=== PATIENT | female | born 1985 | race Caucasian/White ===

== ENCOUNTER 2020-06-21 06:40 | Observation (INO) ==
--- NOTE | 2020-06-08 12:52 | Anesthesiology Consultation ---
Date of Service June 08, 2020 Assessment & Plan (1) Encounter for pre-operative examination: - Check test AM DOS - Per assessment on 06/08: Travel screen negative. No known COVID-19 positive contacts or current COVID-19 related symptoms. Surgeon arranging preop COVID testing (scheduled 06/15; [place]). Awaiting results. - Palpitations: chronic x 3-4 months, EKG done 06/02/20 unremarkable, 2 week holter monitor to be completed 06/18/20 (PCP ordered). Per PCP note from 06/02/20, "She states she is having episodes at least twice a week. She does feel presyncopal symptoms including dizziness, blurry vision and circumoral numbness. Denies any chest pain. She has no headaches." 2 week holter report will likely not be resulted in time for DOS 06/21. Case reviewed with Dr. Medina. He recommends surgery be rescheduled to after holter monitor resulted. Spoke with patient- she states she will contact PCP to see if they are able to remove Holter to review available data prior to surgery if okay with PCP (she has already had recorded, symptomatic episodes). - Patient acceptable risk for surgery pending Holter report. Chart Review Chart Review: Patient NOT seen in Pre Admission Testing History Surgery Operation Date: 06/21/20 12:50 Proposed Procedures p Total Knee Arthroplasty - Dexter Manzo DO Height/Weight Height: 5 ft 7 in Weight: 61.235 kg Allergies Allergy/AdvReac Type Severity Reaction Status Date / Time NSAIDS (Non-Steroidal AdvReac Unknown Gastrointestinal Verified 06/08/20 11:59 Anti-Inflamma Upset Medications Home Medications Medication Instructions Recorded Confirmed Last Taken acetaminophen [Tylenol Extra 500 - 1,000 mg PO Q6H PRN 05/09/19 06/08/20 06/01/19 21:00 Strength] biotin 1 mg PO QAM 05/09/19 06/08/20 06/01/19 08:00 duloxetine 60 mg PO QAM 05/09/19 06/08/20 06/02/19 04:00 gabapentin 300 mg PO HS 05/09/19 06/08/20 05/31/19 hydroxychloroquine [Plaquenil] 400 mg PO QAM 05/09/19 06/08/20 06/02/19 04:00 multivitamin 1 tab PO QAM 05/09/19 06/08/20 06/01/19 08:00 pantoprazole 40 mg tablet,delayed 40 mg PO DAILY PRN 01/19/20 06/08/20 Unknown release tramadol 50 mg tablet 50 mg PO Q8H PRN 01/19/20 06/08/20 Unknown tretinoin 0.025 % topical cream 1 applic TOPICAL ONCE #45 g 04/08/20 06/08/20 Unknown cyclobenzaprine 5 mg tablet 5 mg PO TID PRN #30 tab 05/26/20 06/08/20 Unknown Past Medical History Medical History (Updated 06/08/20 @ 12:47 by April Pascual) Anxiety Arthritis Fibromyalgia GERD (gastroesophageal reflux disease) Heart palpitations Hiatal hernia History of anemia iron deficiency- follows with hematology (Dr. Griffiths) Lyme disease dx 2017, chronic, follows with Dr. Mcclellan ([place], [place])/Lyme specialist Migraine Osteoarthritis Rheumatoid arthritis Temporomandibular joint disorder R/L, wears mouth guard HS Past Family History Family History Mother Anxiety Depression Hypertension Sister Anxiety Depression Father Prostate cancer Grandmother (Maternal) Breast cancer Grandmother (Paternal) Breast cancer Heart disease Aunt Breast cancer Uncle Colon cancer Colorectal cancer Grandfather (Maternal) Heart disease Myocardial infarction Denies family history of Ovarian cancer Past Surgical History Surgical History (Updated 06/08/20 @ 12:09 by Marlin Goldsmith, RN) H/O arthroscopy of right knee X3 History of colonoscopy History of esophagogastroduodenoscopy (EGD) History of hysteroscopy WITH POLYPECTOMY History of removal of ovarian cyst History of repair of anterior cruciate ligament of left knee History of repair of anterior cruciate ligament of right knee History of rhinoplasty Hx laparoscopic cholecystectomy (06/02/19) Laparoscopic cholecystectomy 06/02/19 Dr. Zungia Nausea and vomiting after administration of anesthetic agent Social History Smoking Status: Former smoker Do You Dip or Chew Tobacco: No Smoking End Date: SMOKED X 1 YR-QUIT AGE 20 Hx Alcohol Use: Yes Alcohol type: beer and wine alcohol intake frequency: a few times a month Hx Substance Use: No Testing Laboratory Results 06/02/20 WBC 5.92 H/H 12.9/37.2 PLATELETS 324 SODIUM 138 POTASSIUM 3.9 CHLORIDE 104 CO2 32 BUN 11 CREATININE 0.76 GLUCOSE 88 PT 10.7 PTT 26.2 INR 1.0 TSH 0.975 T&S A+Ab- Electrocardiogram Date: 06/02/20 SR at 80bpm.
--- NOTE | 2020-06-16 20:28 | History & Physical Report ---
Date of Service June 16, 2020 Assessment & Plan (1) Osteoarthritis of right knee: We will proceed with a right total knee arthroplasty. Postoperatively she will be started on aspirin for DVT prophylaxis and kept overnight in the hospital for postoperative medical management. She plans to use [facility] in [place] upon discharge. Present on Admission?: Yes History of Present Illness Chief Complaint: Primary osteoarthritis of the right knee Primary Care Provider: Carley Lizarraga MD Lois is a pleasant 35-year-old female who has had 4 procedures to her right knee in the past. She initially had an ACL reconstruction and then had 3 additional arthroscopies for cleanout procedures of her right knee. Her last 1 was in 2014. She has developed marked arthritis of her right knee. It is really limiting her daily activities. She has been treated conservatively for the past 5 years with cortisone injections. Unfortunately she is still having a lot of knee pain. She cannot do things she enjoys. She not go hiking or go for long walks. Her pain is always there. After long discussions regarding her age, we have elected to proceed with a right total knee arthroplasty. Allergies Allergy/AdvReac Type Severity Reaction Status Date / Time NSAIDS (Non-Steroidal AdvReac Unknown Gastrointestinal Verified 06/08/20 11:59 Anti-Inflamma Upset Home Medications Home Medications Medication Instructions Recorded Confirmed Type acetaminophen [Tylenol Extra 500 - 1,000 mg PO Q6H PRN 05/09/19 06/08/20 History Strength] biotin 1 mg PO QAM 05/09/19 06/08/20 History duloxetine 60 mg PO QAM 05/09/19 06/08/20 History gabapentin 300 mg PO HS 05/09/19 06/08/20 History hydroxychloroquine [Plaquenil] 400 mg PO QAM 05/09/19 06/08/20 History multivitamin 1 tab PO QAM 05/09/19 06/08/20 History pantoprazole 40 mg tablet,delayed 40 mg PO DAILY PRN 01/19/20 06/08/20 History release tramadol 50 mg tablet 50 mg PO Q8H PRN 01/19/20 06/08/20 History tretinoin 0.025 % topical cream 1 applic TOPICAL ONCE #45 g 04/08/20 06/08/20 Rx cyclobenzaprine 5 mg tablet 5 mg PO TID PRN #30 tab 05/26/20 06/08/20 Rx Past Med/Surg History Medical History Anxiety Arthritis Fibromyalgia GERD (gastroesophageal reflux disease) Heart palpitations Hiatal hernia History of anemia iron deficiency- follows with hematology (Dr. Griffiths) Lyme disease dx 2017, chronic, follows with Dr. Mcclellan ([place], [place])/Lyme specialist Migraine Osteoarthritis Rheumatoid arthritis Temporomandibular joint disorder R/L, wears mouth guard HS Surgical History H/O arthroscopy of right knee X3 History of colonoscopy History of esophagogastroduodenoscopy (EGD) History of hysteroscopy WITH POLYPECTOMY History of removal of ovarian cyst History of repair of anterior cruciate ligament of left knee History of repair of anterior cruciate ligament of right knee History of rhinoplasty Hx laparoscopic cholecystectomy (06/02/19) Laparoscopic cholecystectomy 06/02/19 Dr. Zuniga Nausea and vomiting after administration of anesthetic agent Family History Mother Anxiety Depression Hypertension Sister Anxiety Depression Father Prostate cancer Grandmother (Maternal) Breast cancer Grandmother (Paternal) Breast cancer Heart disease Aunt Breast cancer Uncle Colon cancer Colorectal cancer Grandfather (Maternal) Heart disease Myocardial infarction Denies family history of Ovarian cancer Social History Smoking Status: Former smoker Second Hand Exposure: Yes (PARENTS SMOKED); Hx Alcohol Use: Yes Alcohol type: beer and wine Hx Substance Use: No Preferred Language: Swazi Communication Ability: Effective Visual Impairment: No Limitations Hearing Ability: Normal Draftsperson Required: No Beliefs That Will Affect Care: None marital status: Current Living Situation: Spouse and Family Current Living Situation Comment: FAMILY WILL HELP POST OP current occupational status: employed current occupation: RN at [employer], [employer] Feels Safe at Home: Yes Childhood Exposure to Second-Hand Smoke: Yes Dental Care, Regularly: Yes Physical Activity Frequency: Daily Seatbelt Use: always Sunscreen Use: Yes Do you think of yourself as: straight/heterosexual Assistive Devices: Glasses Review of Systems Review of Systems: All systems reviewed & are unremarkable except as noted in HPI & below Physical Exam Constitutional: WD/WN, vitals as above Eyes: PERRL, conjunctivae normal, anicteric sclerae ENMT: external ear and nose normal, oropharynx normal Neck: trachea midline, no thyromegaly Respiratory: normal respiratory effort Cardiovascular: RRR, no murmur, no edema Gastrointestinal (Abdomen): normal bowel sounds, soft, nontender, no hepatosplenomegaly Musculoskeletal: On physical examination of the right knee there is a trace effusion. There is near full range of motion and no evidence of instability. There is significant tenderness palpation along the medial and lateral joint lines and over the distal femoral condyles. Psychiatric: A+Ox3, euthymic affect Results & Data Results & Data ([facility]) Diagnostic Findings Radiographs of the right knee demonstrate advanced osteoarthritis with joint space narrowing osteophyte formation and [id number] articulation. PG Care Time/CCT Total # of Minutes Spent Total Time Spent with Patient: Total time spent is greater than 50% in coordination of care (as documented) at patient's floor/unit and/or counseling patient: Coding Level of Care Code None Diagnoses Osteoarthritis of right knee M17.11
[~2020-06-21 06:40] MED LIST: ACETAMINOPHEN 500 MG TAB PO SCH; FAMOTIDINE 20 MG TAB PO SCH; GABAPENTIN 900 MG DOSE PO SCH; LR 500ML BOLUS, THEN 15ML/HR IV SCH; LR 60ML/HR IV SCH; ROPIVACAINE 0.5% HCL/PF 150 MG, BUPIVACAINE 0.5% MPF 30 ML, EPINEPHrine 30MG/30ML (OR U... INSTIL SCH; TRANEXAMIC ACID 1,000 MG **IV Intra-op IV SCH; TRANEXAMIC ACID 1,000 MG **IV Pre-op IV SCH; ceFAZolin 1000MG 1,000 MG/7.5 ML SYR IV SCH; dexAMETHasone 4 MG TAB PO SCH
[2020-06-21] MEDS ORDERED: BUPIVACAINE 0.5 % 5 MG/1 ML PF 10ML VIAL ONE (06:45)
[2020-06-21] MEDS ORDERED: EPINEPHrine INJ 1 MG/ML AMP ONE (06:46)
[2020-06-21] MEDS ORDERED: BUPIVACAINE 0.25% 30 ML VIAL ONE (06:46)
[2020-06-21] MEDS ORDERED: DEXAMETHASONE SOD INJ 4 MG/ML VIAL ONE (06:46)
[2020-06-21] MEDS ORDERED: MIDAZOLAM HCL 1 MG/ML 2ML VIAL ONE ×3 (07:45→09:57)
[2020-06-21] MEDS ORDERED: PROPOFOL IV EMULSION 10 MG/ML 20 ML VIAL IV ONE (07:45)
[2020-06-21] MEDS ORDERED: LIDOCAINE HCL 2% 2 ML VIAL/AMP(20MG/ML) INFIL ONE (07:45)
[2020-06-21] MEDS ORDERED: fentaNYL citrate 100 MCG/2 ML VIAL ONE (07:45)
--- NOTE | 2020-06-21 08:43 | History & Physical Bridge Note ---
Date of Service June 21, 2020 History & Physical Bridge Note I have examined the patient, reviewed the History & Physical and in the interval since the performance of the History & Physical I have noted the following changes of clinical significance: no changes noted
[2020-06-21] MEDS ORDERED: fentaNYL citrate 100 MCG/2 ML VIAL IV PRN (08:48)
[2020-06-21] MEDS ORDERED: ATROPINE SULFATE 0.1 MG/ML 10ML SYR IV PRN (08:48)
[2020-06-21] MEDS ORDERED: ePHEDrine sulfate 50 MG/ML AMP IV PRN (08:48)
[2020-06-21] MEDS ORDERED: ONDANSETRON INJ 2 MG/ML 2 ML VIAL IV PRN ×2 (08:48→12:25)
[2020-06-21] MEDS ORDERED: PROMETHAZINE HCL 6.25 MG in SODIUM CHLORIDE 0.9% 50 ML IV PRN (08:48)
[2020-06-21] MEDS ORDERED: ORTHO JOINT ANESTHETIC ONE (09:08)
[2020-06-21] MEDS ORDERED: ONDANSETRON INJ 2 MG/ML 2 ML VIAL ONE (09:36)
--- NOTE | 2020-06-21 11:09 | Operative Report ---
PG Post Operative Report Pre & Post Diagnosis Operation Date: 06/21/20 09:05 Pre-Op Diagnosis: Degenerative Joint Disease, Right Knee Post-Op Diagnosis: Degenerative Joint Disease, Right Knee I identified the patient and participated in the time-out.: Yes Procedure Operation Date: 06/21/20 09:05 Actual Procedures p Right Total Knee Arthroplasty(Right) - Dexter Manzo DO Surgeon Dexter Manzo DO Boxing Promoter Dexter Abernathy PAC Estimated Blood Loss 10 Findings Consistent with Post-Op Diagnosis Specimens Right femoral and tibial bone Complications none Disposition Disposition: Recovery Room Indications Lois is a pleasant 35-year-old female who is been dealing with chronic right knee pain. She had an ACL reconstruction done in the past. She has since had 5 knee arthroscopies to her right knee. Unfortunately she continues to have pain. She has severe arthritis in the patellofemoral region and complete delamination of the cartilage medially. After extensive discussions regarding her age, we elected to proceed with a right total knee arthroplasty. Description of Procedure Implants used: I used a Wilfrido Persona total knee arthroplasty system with a size 6 standard femur, D tibia, 32 patella, and a size 11 medial congruent polyethylene bearing. All components were cemented in place with Palacos G cement. Lois arrived [facility] for the above procedure. She was seen in the preoperative holding area and the operative extremity was identified and signed. She was given a preoperative antibiotic, TXA, a spinal anesthetic and an adductor nerve block. She was taken back to the operating room and laid on the table in supine position. She was given basic sedation. The operative knee was then prepped and draped in sterile fashion. A timeout was done, and the patient and the operative extremity was properly identified. A midline incision was made directly over the patella. Dissection was taken down to the extensor mechanism. A subvastus arthrotomy was used. The medial retinaculum was released and the fat pad was mostly excised. The knee was flexed and the ACL, PCL, and meniscus were removed. A drill was sent down the center of the femoral canal followed by an intramedullary roberto. Off that roberto a distal femoral cutting block was placed. 9 mm was resected off the distal femur at 5 of valgus. A posterior referencing AP sizing guide was then placed on the distal femur. The femur measured to be a size 6 standard. 2 drill holes were placed in 3 of external rotation. A 4-in-1 cutting block was then impacted into place. Anterior, posterior, and chamfer cuts were then made. The proximal tibia was then exposed. An external tibial alignment guide was placed. A tibial cut guide was then anchored in place and the proximal tibia was then resected. The posterior aspect of the knee was then opened up and any additional meniscus fragments and osteophytes were removed. The tibia measured to be a size D. The tibial plate was then placed in the appropriate rotation and the tibia was drilled and punched. Trial components were then placed. I used a size 11 medial congruent polyethylene insert. The knee was brought through a full range of motion and felt to be stable. The peg holes for the femoral component were then drilled. The patella was then everted and 9 mm was resected off the posterior aspect of the patella. The patella measured to be a size 32. 3 peg holes were then drilled. A trial patella was placed. The knee was once again brought through a full range of motion and felt to be stable. Trial components were then removed. The surrounding soft tissues were injected with 100 cc of an orthopedic pain control cocktail. All components were then cemented into place with Palacos G cement. The final polyethylene insert was then snapped into place. Once cement was dry the tourniquet was deflated. Hemostasis was obtained. A dilute betadyne lavage was then done for 3 minutes. The joint was then irrigated with normal saline solution. The subvastus arthrotomy was then closed with #1 Vicryl suture. The skin was closed with 2-0 Vicryl, 3-0V lock suture, and robert. A Silverlon and a soft compressive dressing were placed. She was then transferred to a hospital bed and taken to the postanesthesia care unit in stable condition. She tolerated the procedure well. Dexter Abernathy PA-C, was present for the entire procedure. He was critical for patient positioning, prepping, draping, retraction exposure, wound closure and application of sterile dressing. I attest to the content of the Intraoperative Record and any orders documented therein. Any exceptions are noted below.
--- NOTE | 2020-06-21 12:07 | XRay Report ---
RIGHT KNEE 2 VIEWS History: Right total knee arthroplasty. Degenerative arthritis. Postop. FINDINGS: The patient is status post a right total knee arthroplasty. The hardware is intact. No frac ture or dislocation. Skin robert are in place. IMPRESSION: Right total knee arthroplasty. No evidence for hardware complication. ACT 112: Negative or not required by law. Electronically signed by: Ranulfo Hughes M.D. 06/21/2020 12:06 PM
[2020-06-21] MEDS ORDERED: bisacodyL 10 MG SUPP PR PRN (12:25)
[2020-06-21] MEDS ORDERED: MAGNESIUM HYDROXIDE SUSP 30 ML UDC PO PRN (12:25)
[2020-06-21] MEDS ORDERED: METOCLOPRAMIDE HCL INJ 5 MG/ML 2 ML VIAL IV PRN (12:25)
[2020-06-21] MEDS ORDERED: NALOXONE HCL 0.4 MG/1 ML VIAL/CARP IV PRN (12:25)
[2020-06-21] MEDS ORDERED: PANTOprazole 40 MG TAB PO PRN (12:25)
[2020-06-21] MEDS ORDERED: oxyCODONE HCL IR 5 MG TAB (IMMEDIATE RELEASE) PO PRN (12:25)
[2020-06-21] MEDS ORDERED: SODIUM CHLORIDE 0.9% 1000ML 1,000 ML IV SCH (12:25)
--- NOTE | 2020-06-21 12:50 | Anesthesiology Progress Note ---
Date of Service June 21, 2020 Anesthesia Post Procedure Vital Signs Vital Signs: Temp Pulse Resp BP BP Pulse Ox 06/21/20 12:45 77 16 108/66 99 06/21/20 12:15 36.8 C 85 16 99/65 L 99 06/21/20 12:05 37.2 C 79 14 98/64 L 98 06/21/20 11:55 37.2 C 81 19 102/64 100 06/21/20 11:45 37.2 C 81 14 99/65 L 100 06/21/20 11:35 79 14 97/66 L 100 06/21/20 11:25 80 15 105/65 100 06/21/20 11:19 36.7 C 82 12 107/66 100 06/21/20 08:24 65 18 104/62 100 06/21/20 07:46 36.8 C 69 18 119/72 96 Transfer of Care Handoff Completed per policy Notes Mental Status: alert / awake / arousable Patient Amnestic to Procedure: Yes Nausea / Vomiting: adequately controlled Pain: adequately controlled Airway Patency, RR, SpO2: stable & adequate BP & HR: stable & adequate Hydration State: stable & adequate Neuraxial Anesthesia: was administered and sensory block is resolving Anesthetic Complications: no major complications apparent
[2020-06-21] MEDS: ACETAMINOPHEN 500 MG TAB PO SCH ×2 (14:16→21:38)
[2020-06-21] MEDS: ceFAZolin 2000MG 2,000 MG/15 ML SYR IV SCH ×2 (16:22→23:13)
[2020-06-21] MEDS: HYDROmorphone INJ 0.5 MG/0.5 ML SYR IV PRN ×2 (19:19→23:13)
[2020-06-21] MEDS ORDERED: GABAPENTIN 300 MG CAP PO SCH (21:00)
[2020-06-21] MEDS ORDERED: NON-FORMULARY PATIENT'S OWN MED EXT SCH (21:00)
[2020-06-21] MEDS ORDERED: SENNA 8.6 MG TAB PO SCH (21:00)
[2020-06-21] MEDS: oxyCODONE HCL IR 5 MG TAB (IMMEDIATE RELEASE) PO PRN (21:38)
[2020-06-21] MEDS: ASPIRIN 81 MG ECTAB PO SCH (21:40)
[2020-06-21] MEDS: DOCUSATE SODIUM 100 MG CAP PO SCH (21:41)
[2020-06-22] MEDS: oxyCODONE HCL IR 5 MG TAB (IMMEDIATE RELEASE) PO PRN ×4 (01:24→13:13)
[2020-06-22] MEDS: CYCLOBENZAPRINE HCL 5 MG TAB PO PRN ×2 (02:45→10:33)
[2020-06-22] MEDS: ACETAMINOPHEN 500 MG TAB PO SCH (04:59)
[2020-06-22] MEDS: HYDROmorphone INJ 0.5 MG/0.5 ML SYR IV PRN ×2 (06:36→10:32)
[2020-06-22 07:29] LABS: Hemoglobin 11.2 g/dL (12.0-16.0); Mean Corpuscular Hemoglobin 32.8 pg (25-34); Mean Corpuscular Hgb Conc 33.9 g/dL (32-36); Mean Corpuscular Volume 96.8 fL (80-100); Mean Platelet Volume 10.1 fL (7.4-10.4); Platelet Count 249 K/uL (130-400); RDW Coefficient of Variation 12.5 % (11.5-14.5); RDW Standard Deviation 43.8 fL (36.4-46.3); Red Blood Count 3.41 M/uL (4.2-5.4); White Blood Count 10.42 K/uL (4.8-10.8)
[2020-06-22] MEDS ORDERED: dexAMETHasone 4 MG TAB PO SCH (08:00)
--- NOTE | 2020-06-22 08:03 | Orthopedic Progress Note ---
Date of Service June 22, 2020 Assessment & Plan (1) Status post right knee replacement: Lois is recovering as expected up to this point. She understands the numbness in her foot will likely subside as the day progresses. From an orthopedic standpoint, she is ready for discharge once her foot numbness completely resloves. She will await medical clearance. She will continue physical therapy in the meantime for ambulatory assistance and range of motion exercises. She may remain weightbearing as tolerated. She will continue aspirin for DVT prophylaxis. Once discharged, she can follow-up in our orthopedic office in 2 weeks for reevaluation and staple removal at that time. Admission and Anticipated Discharge Date Admission Date: June 21, 2020 Gil Abreu was seen and examined at bedside with Dr. Manzo today. States her pain has been mostly well controlled, however, she did not sleep comfortably through the night. She states the oxycodone did not provide significant relief but she did get relief from the Dilaudid. She has been working with physical therapy for ambulatory assistance and range of motion exercises. She denies any fever, chills, sweats. She has no other complaints today. She is excited for discharge. Review of Systems Constitutional: no fever, no chills and no problem reported Eyes: as per Subjective / HPI; no problem reported Ear, Nose, Mouth, Throat: as per Subjective / HPI; no problem reported Respiratory: as per Subjective / HPI; no problem reported Cardiovascular: no edema and no problem reported Gastrointestinal: no nausea, no vomiting and no problem reported Musculoskeletal: as per Subjective / HPI Integumentary: as per Subjective / HPI; no problem reported Neurologic: no tingling, no paresthesia and no problem reported Psychiatric: no problem reported Endocrine: as per Subjective / HPI Hematologic / Lymphatic: as per Subjective / HPI Allergy / Immunological: no problem reported Physical Exam Musculoskeletal: Lois was laying comfortably in bed, in no acute distress, upon arrival. She is alert and oriented x3. Her dressings appear clean and dry with no evidence of discharge. She is unable to plantarflex/dorsiflex her foot at this time. She is otherwise neurovascularly intact. Results & Data ([facility]) Vital Signs (Past 12 Hours) Vital Signs Temp Pulse Resp BP Pulse Ox 06/22/20 02:39 36.8 C 67 15 101/63 99 11/16/20 23:03 36.8 C 85 15 120/74 100 PG Care Time/CCT Total # of Minutes Spent Total Time Spent with Patient: Total time spent is greater than 50% in coordination of care (as documented) at patient's floor/unit and/or counseling patient: Coding Level of Care Code None Diagnoses Status post right knee replacement Z96.651
--- NOTE | 2020-06-22 08:10 | Discharge Summary ---
Date of Service June 22, 2020 Admission HPI Per Admitting Provider Lois is a pleasant 35-year-old female who has had 4 procedures to her right knee in the past. She initially had an ACL reconstruction and then had 3 additional arthroscopies for cleanout procedures of her right knee. Her last 1 was in 2014. She has developed marked arthritis of her right knee. It is really limiting her daily activities. She has been treated conservatively for the past 5 years with cortisone injections. Unfortunately she is still having a lot of knee pain. She cannot do things she enjoys. She can not go hiking or go for long walks. Her pain is always there. After long discussions regarding her age, we have elected to proceed with a right total knee arthroplasty. Principal Diagnosis Right total knee replacement Discharge Data Allergies Allergy/AdvReac Type Severity Reaction Status Date / Time NSAIDS (Non-Steroidal AdvReac Unknown Gastrointestinal Verified 06/08/20 11:59 Anti-Inflamma Upset Consultations 06/21/20 12:25 Consult Case Management - Discharge Planning Routine Procedures Performed Operation Date: 06/21/20 09:05 Actual Procedures p Right Total Knee Arthroplasty(Right) - Dexter Manzo DO Ordered Studies 06/21/20 05:00 US - OR guided needle placemen Routine Hospital Course (1) Status post right knee replacement: Lois is a 35-year-old female who presented to [facility] for right total knee arthroplasty on 06/21/2020. She was given a spinal anesthetic. The procedure was uncomplicated. She was then transferred to general orthopedic floors. On postop day 1, her vitals and H&H were stable. Her pain was well controlled. She did work with physical therapy for range of motion exercises and ambulatory assistance. She was then discharged home. She will continue aspirin for DVT prophylaxis. Her pain medications were sent to her pharmacy. She may remain weightbearing as tolerated. She will follow-up in our orthopedic office in 2 weeks for reevaluation and staple removal at that time. Total Time Total Time Spent Total Time Spent (In Minutes): 20 minutes Discharge Plan Discharge Items Patient Disposition: Home - Home Health Services Reason For Visit: DJD Knee Right Discharge Diagnosis: Right knee replacement Activity: As commented below Non-emergency contact: Surgeon Call non-emergency contact if: your wound has increased redness and your wound has increased drainage Follow-up/Referrals: Carley Lizarraga MD [Primary Care Provider] - Diet: Regular Addtl Attending Provider Instructions: Activity and Therapy Recommendations: * If you are using [facility] then therapy will be provided at your home until they feel you have accomplished all of your goals. * If you are using [facility] then Physical Therapy will be provided until they feel you are ready to start Outpatient Physical Therapy. * If you are not using home therapy then Outpatient Physical Therapy should start about 3-5 days from your day of surgery. Therapy will last about 6-10 weeks * It is important not to put a pillow under your knee when you are relaxing or sleeping. It is just as important to make sure you are getting your knee perfectly straight as it is to regain your knee bend. * You were shown a series of exercises in the hospital. Do these exercises three times each day including the exercises you were shown in physical therapy. * Get up and walk several times each day. For the first four weeks, try not to stand or walk for more than one hour at a time. If you do stand or walk for more than one hour, you will not hurt anything, but your leg will likely swell. * As you feel comfortable, you may change from the walker or crutches to a cane and then to independent walking. Medications: * Narcotic You will likely be sent home from the hospital with a prescription for the narcotic pain medication that worked best throughout your stay. * Aspirin Most patients will be required to take Aspirin 81mg twice a day for 6 weeks after surgery. This is obtained [id number] and a prescription is not necessary. * Other medications may be prescribed for specific circumstances. If you have any questions, please call the office at . * Resume previous home medications unless otherwise instructed TEDs/Elastic Stockings: The white elastic stockings help limit swelling and prevent blood clots from forming in your legs.~ The more you wear them, the more they work. Wear them for six weeks. Dressing Care: Leave the Silverlon dressing in place for 7 days. After 7 days you may remove the dressing. If the incision is not draining then you may leave the robert open to air. If there is a little bit of drainage or if the robert are getting stuck on your clothing then cover the incision with a dry dressing. The robert will be removed at your 2 week follow-up appointment. Showering: You may shower with the Silverlon dressing in place. Do not let the shower spray hit the dressing directly. Pat the Silverlon dressing dry. If the dressing becomes wet underneath, then simply remove the dressing. Keep the incision dry until you are 7 days out from the day of surgery. After 7 days you may remove the Silverlon dressing and shower with the robert exposed. Let soapy water run over the robert and pat them dry. Do not scrub or soak the incision. Things To Watch For: * Drainage from the incision site that occurs more than one week after your surgery. * Increased redness at the incision site. * Fever above 102 degrees Fahrenheit. * Unusual chest pain or shortness of breath. * Call [facility] at with any of the above problems Follow-Up Visit: Follow-up with Dr. Manzo's PA (Dexter Abernathy) 2-3 weeks after your day of surgery. He will remove your robert and answer any questions. If you have any additional questions or concerns, Dr Manzo is usually in the office at the same time and will be available An appointment was probably scheduled when you signed-up for surgery in the office. If you have any questions call Office Instructions: More detailed instructions as well as Frequently Asked Questions were provided in a folder by our office when you signed-up for surgery. Please review these instructions when you get home. If you have any further questions or concerns, please feel free to call the office at [phone] Pending Studies at Discharge: No Stand-Alone Forms: [facility], Opioid Pain Management, Smoking Cessation Medications and DC Order Prescriptions: New aspirin 81 mg Tablet,Delayed Release (Dr/Ec) 81 mg PO BID 42 Days Qty: 0 RF: 0 hydromorphone [Dilaudid] 4 mg tablet 4 mg PO Q4H PRN (Reason: pain) Qty: 60 RF: 0 Continued cyclobenzaprine 5 mg tablet 5 mg PO TID PRN (Reason: muscle spasm) Qty: 30 RF: 0 pantoprazole [Protonix] 40 mg tablet,delayed release (DR/EC) 40 mg PO DAILY PRN (Reason: Acid Reflux) RF: 0 tretinoin 0.025 % cream 1 applic topical ONCE Qty: 45 RF: 2 multivitamin Tablet 1 tab PO QAM RF: 0 acetaminophen [Tylenol Extra Strength] 500 mg Tablet 500 - 1,000 mg PO Q6H PRN (Reason: Pain) RF: 0 gabapentin 300 mg Capsule 300 mg PO HS RF: 0 hydroxychloroquine [Plaquenil] 200 mg Tablet 400 mg PO QAM RF: 0 duloxetine 60 mg Capsule,Delayed Release(Dr/Ec) 60 mg PO QAM RF: 0 biotin 1 mg Capsule 1 mg PO QAM RF: 0 Discontinued tramadol 50 mg tablet 50 mg PO Q8H PRN (Reason: Pain) RF: 0 No Action (DME) Wheeled Walker Misc See Rx Instructions .MEDSUPPLY Qty: 1 RF: 0 Discharge Orders: Discharge Order (Routine); Ordered 06/22/20 Ordered By: Dexter Godoy/Other Patient Handouts: Total Knee Replacement Admission Data Admit Date/Time: 06/21/20 11:22 Attending Provider: Dexter Manzo Admit Provider: Dexter Manzo Primary Care Provider: Carley Lizarraga Other Providers: [facility],Home Healthcare Other Interventions: Discharge Summary Assessment (RN) Last Done: 06/22/20 09:09
--- NOTE | 2020-06-22 08:14 | Anesthesiology Progress Note ---
Date of Service June 22, 2020 Anesthesia Post Procedure Vital Signs Vital Signs: Temp Pulse Resp BP BP Pulse Ox 06/22/20 08:03 36.6 C 65 16 121/81 100 06/22/20 02:39 36.8 C 67 15 101/63 99 06/21/20 23:03 36.8 C 85 15 120/74 100 06/21/20 19:56 37.0 C 73 16 130/78 100 06/21/20 15:19 36.7 C 72 16 100/62 98 06/21/20 14:19 90 16 105/65 96 06/21/20 13:15 91 H 16 114/73 98 06/21/20 12:45 77 16 108/66 99 06/21/20 12:15 36.8 C 85 16 99/65 L 99 06/21/20 12:05 37.2 C 79 14 98/64 L 98 06/21/20 11:55 37.2 C 81 19 102/64 100 06/21/20 11:45 37.2 C 81 14 99/65 L 100 06/21/20 11:35 79 14 97/66 L 100 06/21/20 11:25 80 15 105/65 100 06/21/20 11:19 36.7 C 82 12 107/66 100 06/21/20 08:24 65 18 104/62 100 Notes Mental Status: alert / awake / arousable and participated in evaluation Patient Amnestic to Procedure: Yes Nausea / Vomiting: adequately controlled Pain: adequately controlled Airway Patency, RR, SpO2: stable & adequate BP & HR: stable & adequate Hydration State: stable & adequate Neuraxial Anesthesia: was administered and sensory block resolved Anesthetic Complications: no major complications apparent
[2020-06-22 08:23] LABS: BUN Creatinine Ratio 16.3 (10-20); Calcium 8.6 mg/dl (8.5-10.1); Creatinine Clr Calc Pharmacy 120.1 ml/min; Est GFR (African American) 135.9; Est GFR (Non-African American) 117.3; Potassium 3.5 mmol/L (3.5-5.1)
[2020-06-22] MEDS: DOCUSATE SODIUM 100 MG CAP PO SCH (08:27)
[2020-06-22] MEDS: ASPIRIN 81 MG ECTAB PO SCH (08:27)
[2020-06-22] MEDS ORDERED: MULTIVITAMIN TAB PO SCH (09:00)
[2020-06-22] MEDS ORDERED: DULoxetine HCL 60 MG CAP PO SCH (09:00)
[2020-06-22] MEDS ORDERED: HYDROXYCHLOROQUINE SULFATE 200 MG TAB PO SCH (09:00)
== END 2020-06-22 13:55 | disposition home health service (06) ==
LOC: ASU 06:40 → 3E 06:40